=== PATIENT | female | born 1965 | race Caucasian/White ===

== ENCOUNTER 2020-04-30 16:00 | Emergency (ER) | payer OTHER ==
[2020-04-30 16:20] VITALS: BP 155/88; PULSE 78; TEMP 97.8; BMI 25.7
== END 2020-04-30 17:25 | disposition home or self-care (01) ==
LOC: FER 16:00
DX: S93.04XA Dislocation of right ankle joint, initial encounter (principal)
CPT/HCPCS: 73610-TC-RT-FY; 73630-TC-RT-FY; 99284-25

== ENCOUNTER 2023-12-15 20:18 | Emergency (ER) | payer OTHER ==
[2023-12-15 20:25] VITALS: PULSE 64; RESP 18; TEMP 98.2; BMI 24.7
[2023-12-15] MEDS ORDERED: IBUPROFEN 400 MG TABLET (FP) PO ONE (21:20)
[2023-12-15] MEDS: IBUPROFEN 400 MG TABLET (FP) PO ONE (21:51)
[2023-12-15 21:58] VITALS: BP 170/91
== END 2023-12-15 22:04 | disposition home or self-care (01) ==
LOC: FER 20:18
DX: S63.501A Unspecified sprain of right wrist, initial encounter (principal); W01.0XXA Fall on same level from slipping, tripping and stumbling without subsequent striking against object, initial encounter; Y93.01 Activity, walking, marching and hiking
CPT/HCPCS: 73110-TC-RT-FY; 73130-TC-RT-FY; 99283-25